=== PATIENT | male | born 1985 | race African-American/Black ===

== ENCOUNTER 2020-03-25 02:07 | Emergency (ER) | payer BC ==
[2020-03-25 02:24] VITALS: BP 132/77; PULSE 94
--- NOTE | 2020-03-25 02:37 | EDM.PDOC ---
ED HPI GENERAL MEDICAL PROBLEM - General Chief Complaint: ENT Problem Stated Complaint: SORE THROAT Time Seen by Provider: 03/25/20 02:08 Source of Information: Reports: Patient History Limitations: Reports: No Limitations - History of Present Illness INITIAL COMMENTS - FREE TEXT/NARRATIVE: 34-year-old male no past medical history presenting with sore throat and fever. Symptoms present for 2 days. Reports odynophagia, fever at home to 101.5 yesterday. Intermittently taking Tylenol and Motrin. Denies headache, neck stiffness, shortness of breath, recent travel or sick contacts. No other complaints. throat Pain Score (Numeric/FACES): 3 - Related Data Allergies Allergy/AdvReac Type Severity Reaction Status Date / Time Unable to Assess Allergy Unverified 03/25/20 02:18 Home Meds: Home Meds . [No Known Home Meds] 11/11/14 [History] Past Medical History - Past Health History Medical/Surgical History: Denies Medical/Surgical History HEENT History: Reports: None Cardiovascular History: Reports: None Respiratory History: Reports: None Gastrointestinal History: Reports: None Genitourinary History: Reports: None Musculoskeletal History: Reports: None Neurological History: Reports: None Psychiatric History: Reports: None Endocrine/Metabolic History: Reports: None Hematologic History: Reports: None Immunologic History: Reports: None Oncologic (Cancer) History: Reports: None Dermatologic History: Reports: None - Infectious Disease History Infectious Disease History: Reports: Chicken Pox Social & Family History - Family History Family Medical History: Noncontributory - Tobacco Use Smoking Status *Q: Current Every Day Smoker Years of Tobacco use: 15 Packs/Tins Daily: 1 - Recreational Drug Use Recreational Drug Use: Yes Recreational Drug Type: Reports: Marijuana/Hashish Recreational Drug Use Frequency: Socially ED ROS ENT - Review of Systems Review Of Systems: See Below Constitutional: Reports: Fever, Malaise HEENT: Reports: Throat Pain. Denies: Ear Discharge, Ear Pain, Nose Pain, Rhinitis, Sinus Problem, Throat Swelling Respiratory: Denies: Shortness of Breath, Cough Cardiovascular: Denies: Chest Pain GI/Abdominal: Denies: Abdominal Pain, Nausea, Vomiting : Denies: Flank Pain Musculoskeletal: Reports: No Symptoms Skin: Denies: Rash Neurological: Denies: Headache Psychiatric: Reports: No Symptoms Hematologic/Lymphatic: Reports: No Symptoms Immunologic: Reports: No Symptoms ED EXAM, ENT - Physical Exam Exam: See Below Text/Narrative:: Vital signs reviewed. Nursing notes reviewed. Constitutional: Awake, alert, non-distressed. Head: Normocephalic, atraumatic. Eyes: EOMI, conjunctiva normal, no discharge, no scleral icterus. Ears, Nose, Throat: External ears and ears normal, moist oral mucosa. 3+ tonsils with right-sided tonsillar exudate, positive anterior cervical lymphadenopathy. Supple neck with normal range of motion, no rigidity. No frontal or maxillary sinus tenderness to palpation. Uvula midline. TMs clear bilaterally. Cardiovascular: 2+ radial pulse, capillary refill less than 2 seconds. Pulmonary: normal work of breathing, no accessory muscle use. Abdomen/GI: Soft, nontender, nondistended, no guarding or rigidity, no masses. Musculoskeletal: No deformities. Integumentary: Appropriate color for ethnicity, warm, dry, no pallor or jaundice , no rash. Neurologic: Alert, answering questions appropriately, normal speech, no facial droop, moving all extremities well. Psychiatric: Appropriate mood and affect, normal thought process. Course - Vital Signs Text/Narrative:: Patient hemodynamically stable, afebrile, well-appearing, looks nontoxic. Differential diagnosis includes but is not limited to: Strep throat, viral pharyngitis, URI On exam noted anterior cervical lymphadenopathy, tonsillar hypertrophy with exudate, reported fever at home, no cough. 01/27 [facility] criteria. Rapid strep ordered per MIPS criteria. 0255: Rapid strep test negative. Will treat with p.o. Decadron. Over-the- counter acetaminophen and ibuprofen along with sore throat lozenges. Plan: Patient is stable to discharge home with outpatient primary care follow- up. Strict emergency department return precautions were provided, patient indicated understanding. All questions were answered prior to departure. Discharged in good condition. Last Recorded V/S: Last Vital Signs Temp 36.4 C 03/25/20 02:19 Pulse 94 03/25/20 02:19 Resp 14 03/25/20 02:19 BP 132/77 03/25/20 02:19 Pulse Ox 96 03/25/20 02:19 - Orders/Labs/Meds Orders: Active Orders 24 hr Category Date Time Status CULTURE STREP A CONFIRMATION [RM] Stat Lab 03/25/20 02:26 Results STREP SCRN A RAPID W CULT CONF [RM] Stat Lab 03/25/20 02:26 Results dexAMETHasone Med 03/25/20 03:01 Once 10 mg PO NOW ONE Medication Orders Dexamethasone (Dexamethasone) 10 mg PO NOW ONE Stop: 03/25/20 03:02 Meds: Medications Generic Name Dose Route Start Last Admin Trade Name Jay PRN Reason Stop Dose Admin Dexamethasone 10 mg 03/25/20 03:01 Dexamethasone PO 03/25/20 03:02 NOW ONE Departure - Departure Time of Disposition: 02:36 Disposition: Home, Self-Care 01 Condition: Good Clinical Impression: Acute pharyngitis Qualifiers: Pharyngitis/tonsillitis etiology: other specified organisms Qualified Code(s): J02.8 - Acute pharyngitis due to other specified organisms - Discharge Information *PRESCRIPTION DRUG MONITORING PROGRAM REVIEWED*: Not Applicable *COPY OF PRESCRIPTION DRUG MONITORING REPORT IN PATIENT TANNER: Not Applicable Instructions: Tonsillitis, [id number] Referrals: [facility] - [facility] [Provider Group] - 1 Week (For follow-up of symptoms) Forms: ED Department Discharge Additional Instructions: Thank you for choosing the [facility] emergency department in [place] for your medical needs today. It was a pleasure caring for you. You were seen in the emergency department for sore throat. Your rapid strep throat test was negative. You were treated with oral steroids. Continue taking [id number] acetaminophen and ibuprofen along with sore throat lozenges. Do not let anyone eat or drink after you until you have been well for at least 1 to 2 days. Please return the emergency department immediately if your symptoms worsen or if you feel worse. The following information is given to patients seen in the emergency department who are being discharged. This information is to outline your options for follow -up care. We provide all patients seen in our emergency department with a follow -up referral. The need for follow-up, as well as the timing and circumstances, are variable depending upon the specifics of your emergency department visit. If you don't have a primary care physician on staff, we will provide you with a referral. We always advise you to contact your personal physician following an emergency department visit to inform them of the circumstance of the visit and for follow-up with them and/or the need for any referrals to a consulting specialist. The emergency department will also refer you to a specialist when appropriate. This referral assures that you have the opportunity for follow-up care with a specialist. All of these measure are taken in an effort to provide you with optimal care, which includes your follow-up. Under all circumstances we always encourage you to contact your private physician who remains a resource for coordinating your care. When calling for follow-up care, please make the office aware that this follow-up is from your recent emergency room visit. If for any reason you are refused follow-up, please contact the [facility] Emergency Department at and asked to speak to the emergency department charge nurse. If you do not have a primary care physician that is caring for you, you can contact these clinics below to set up an appointment to establish care: [facility] - Primary Care [address] [place] [id number] [facility] [address] [place] [id number] Sepsis Event Note - Evaluation Sepsis Screening Result: No Definite Risk - Focused Exam Vital Signs: Vital Signs Temp Pulse Resp BP Pulse Ox 03/25/20 02:19 36.4 C 94 14 132/77 96 Date Exam was Performed: 03/25/20 Time Exam was Performed: 02:55 - My Orders Last 24 Hours: My Active Orders 03/25/20 02:26 CULTURE STREP A CONFIRMATION [RM] Stat STREP SCRN A RAPID W CULT CONF [RM] Stat 03/25/20 03:01 dexAMETHasone 10 mg PO NOW ONE - Assessment/Plan Last 24 Hours: My Active Orders 03/25/20 02:26 CULTURE STREP A CONFIRMATION [RM] Stat STREP SCRN A RAPID W CULT CONF [RM] Stat 03/25/20 03:01 dexAMETHasone 10 mg PO NOW ONE
[2020-03-25] MEDS ORDERED: Dexamethasone 10 MG/ML SDV PO ONE (03:00)
[2020-03-25] MEDS ORDERED: Dexamethasone 10 MG/ML SDV ONE (03:00)
== END 2020-03-25 03:13 | disposition home or self-care (01) ==
LOC: MW.ED 02:07
DX: J02.8 Acute pharyngitis due to other specified organisms (principal); F17.210 Nicotine dependence, cigarettes, uncomplicated
CPT/HCPCS: 87081; 87880; 99283; J1100; 99282